=== PATIENT | male | born 1945 | race Caucasian/White ===

== ENCOUNTER 2018-07-30 20:42 | Emergency (ER) | payer MEDICARE, OTHER ==
--- NOTE | 2018-07-30 21:21 | EDM.PDOC ---
ED HPI GENERAL MEDICAL PROBLEM - General Stated Complaint: PNEUMONIA? [id number] Time Seen by Provider: 07/30/18 21:05 Source of Information: Reports: Patient, Family History Limitations: Reports: No Limitations - History of Present Illness INITIAL COMMENTS - FREE TEXT/NARRATIVE: This 72 yo male patient was brought to the ED by his due to increased difficulties moving. The patient has a history of CLL and has been getting more unstable over the past couple of months, but today the patient has not been able to walk. The patient has been reporting a cough over the past couple of days. The patient reports he has no current pain or problems. The patient's states the patient has lost control of his bowels and bladder. The [facility] and [facility] through the [facility] and [facility]. Onset: Today Duration: Constant, Getting Worse Location: Reports: Generalized Quality: Reports: Other Severity: Moderate Improves with: Reports: None Worsens with: Reports: None Context: Reports: Other Associated Symptoms: Reports: No Other Symptoms ED ROS GENERAL - Review of Systems Review Of Systems: ROS reveals no pertinent complaints other than HPI. ED EXAM, GENERAL - Physical Exam Exam: See Below Exam Limited By: No Limitations General Appearance: Alert, WD/WN, Moderate Distress Eye Exam: Bilateral Eye: EOMI, Normal Inspection, PERRL Ears: Normal External Exam, Normal Canal, Hearing Grossly Normal, Normal TMs Nose: Normal Inspection, Normal Mucosa, No Blood Throat/Mouth: Normal Inspection, Normal Lips, Normal Teeth, Normal Gums, Normal Oropharynx, Normal Voice, No Airway Compromise Head: Atraumatic, Normocephalic Neck: Normal Inspection, Supple, Non-Tender, Full Range of Motion Respiratory/Chest: No Respiratory Distress, No Accessory Muscle Use, Chest Non- Tender, Decreased Breath Sounds (with decreased effort) Cardiovascular: Normal Peripheral Pulses, Regular Rate, Rhythm, No Edema, No Gallop, No JVD, No Murmur, No Rub GI/Abdominal: Normal Bowel Sounds, Soft, Non-Tender, No Organomegaly, No Distention, No Abnormal Bruit, No Mass (Male) Exam: Deferred Rectal (Males) Exam: Deferred Back Exam: Normal Inspection, Full Range of Motion, NT Extremities: Normal Inspection, Normal Range of Motion, Non-Tender, No Pedal Edema, Normal Capillary Refill Neurological: Alert, Oriented, CN II-XII Intact, Normal Cognition, Abnormal Gait (increased lower extremity weakness) Psychiatric: Normal Affect, Normal Mood Skin Exam: Warm, Dry, Intact, Normal Color, No Rash Lymphatic: No Adenopathy Course - Vital Signs Last Recorded V/S: Last Vital Signs Temp 37.5 C 07/30/18 20:09 Pulse 109 H 07/30/18 20:09 Resp 25 H 07/30/18 20:09 BP 140/81 07/30/18 20:09 Pulse Ox 96 07/30/18 20:09 - Orders/Labs/Meds Orders: Active Orders 24 hr Category Date Time Status EKG Documentation Completion [RC] URGENT Care 07/30/18 21:09 Active COMPREHENSIVE METABOLIC PN,CMP [CHEM] Urgent Lab 07/30/18 22:00 Results CULTURE BLOOD [BC] Stat Lab 07/30/18 22:00 Received CULTURE URINE [RM] Urgent Lab 07/30/18 21:55 Received TROPONIN I [CHEM] Urgent Lab 07/30/18 22:00 Results UA W/MICROSCOPIC [URIN] Urgent Lab 07/30/18 21:55 Results Labs: Laboratory Tests 07/30/18 07/30/18 07/30/18 Range/Units 21:55 22:00 22:00 WBC 5.8 (5.0-10.0) 10^3/uL RBC 3.82 L (4.6-6.2) 10^6/uL Hgb 13.8 L (14.0-18.0) g/dL Hct 39.7 L (40.0-54.0) % MCV 103.9 H D (80-100) fL MCH 36.1 H (27.0-34.0) pg MCHC 34.8 (33.0-35.0) g/dL Plt Count 110 L (150-450) 10^3/uL Neut % (Auto) 63.9 (42.2-75.2) % Lymph % (Auto) 19.5 L (20.5-50.1) % Harper % (Auto) 15.6 H (2-8) % Eos % (Auto) 0.7 L (1.0-3.0) % Baso % (Auto) 0.3 (0.0-1.0) % Sodium 131 L (135-145) mmol/L Potassium 4.2 (3.6-5.0) mmol/L Chloride 97 L (101-111) mmol/L Carbon Dioxide 21.0 (21.0-31.0) mmol/L Anion Gap 17.2 BUN 20 H (7-18) mg/dL Creatinine 1.5 H (0.6-1.3) mg/dL Est Cr Clr Drug Dosing 45.96 mL/min Estimated GFR (MDRD) 46 BUN/Creatinine Ratio 13.33 Glucose 106 H (74-105) mg/dL Lactic Acid (0.5-2.2) mmol/L Calcium 9.0 (8.4-10.2) mg/dl Total Bilirubin 0.9 (0.2-1.0) mg/dL AST 35 (10-42) IU/L ALT 42 (10-60) IU/L Alkaline Phosphatase 118 (42-121) IU/L Total Protein 7.1 (6.7-8.2) g/dl Albumin 4.2 (3.2-5.5) g/dl Globulin 2.9 Albumin/Globulin Ratio 1.45 Urine Color Yellow (YELLOW) Urine Appearance Slightly cloudy (CLEAR) Urine pH 5.5 (5.0-9.0) Ur Specific Maskell 1.025 (1.005-1.030) Urine Protein 100 H (NEGATIVE) Urine Glucose (UA) 100 H (NEGATIVE) Urine Ketones 40 H (NEGATIVE) Urine Occult Blood Negative (NEGATIVE) Urine Nitrite Negative (NEGATIVE) Urine Bilirubin Small H (NEGATIVE) Urine Urobilinogen 0.2 (0.2-1.0) mg/dL Ur Leukocyte Esterase Small H (NEGATIVE) 07/30/18 Range/Units 22:00 WBC (5.0-10.0) 10^3/uL RBC (4.6-6.2) 10^6/uL Hgb (14.0-18.0) g/dL Hct (40.0-54.0) % MCV (80-100) fL MCH (27.0-34.0) pg MCHC (33.0-35.0) g/dL Plt Count (150-450) 10^3/uL Neut % (Auto) (42.2-75.2) % Lymph % (Auto) (20.5-50.1) % Harper % (Auto) (2-8) % Eos % (Auto) (1.0-3.0) % Baso % (Auto) (0.0-1.0) % Sodium (135-145) mmol/L Potassium (3.6-5.0) mmol/L Chloride (101-111) mmol/L Carbon Dioxide (21.0-31.0) mmol/L Anion Gap BUN (7-18) mg/dL Creatinine (0.6-1.3) mg/dL Est Cr Clr Drug Dosing mL/min Estimated GFR (MDRD) BUN/Creatinine Ratio Glucose (74-105) mg/dL Lactic Acid 1.4 (0.5-2.2) mmol/L Calcium (8.4-10.2) mg/dl Total Bilirubin (0.2-1.0) mg/dL AST (10-42) IU/L ALT (10-60) IU/L Alkaline Phosphatase (42-121) IU/L Total Protein (6.7-8.2) g/dl Albumin (3.2-5.5) g/dl Globulin Albumin/Globulin Ratio Urine Color (YELLOW) Urine Appearance (CLEAR) Urine pH (5.0-9.0) Ur Specific Maskell (1.005-1.030) Urine Protein (NEGATIVE) Urine Glucose (UA) (NEGATIVE) Urine Ketones (NEGATIVE) Urine Occult Blood (NEGATIVE) Urine Nitrite (NEGATIVE) Urine Bilirubin (NEGATIVE) Urine Urobilinogen (0.2-1.0) mg/dL Ur Leukocyte Esterase (NEGATIVE) - Re-Assessments/Exams Free Text/Narrative Re-Assessment/Exam: 07/30/18 22:54 A call was placed to the [facility] in [place] (Dr. Ceballos advised that their facility was full and unable to accept the patient at this time). A call was then placed to [facility] in [place]. Dr. Handy accepted the patient for continued evaluation and management. Departure - Departure Time of Disposition: 22:57 Disposition: DC/Tfer to Acute Hospital 02 Condition: Fair Clinical Impression: Lower extremity weakness Qualifiers: Laterality: bilateral Qualified Code(s): R29.898 - Other symptoms and signs involving the musculoskeletal system Incontinence of bowel Qualifiers: Fecal incontinence type: unspecified Qualified Code(s): R15.9 - Full incontinence of feces Incontinence of urine Qualifiers: Urinary Incontinence type: unspecified incontinence Qualified Code(s): R32 - Unspecified urinary incontinence - Discharge Information *PRESCRIPTION DRUG MONITORING PROGRAM REVIEWED*: Not Applicable *COPY OF PRESCRIPTION DRUG MONITORING REPORT IN PATIENT SYED: Not Applicable Forms: Interfacility Transfer EMTALA Care Plan Goals: Discussed the patient's history, examination, labs, EKG, CT and x-ray results with Dr. Handy ([facility] in [place]). Dr. Handy accepted the patient for continued evaluation and further management. The patient will be transported by [facility]. - My Orders Last 24 Hours: My Active Orders 07/30/18 21:09 EKG Documentation Completion [RC] URGENT 07/30/18 21:55 CULTURE URINE [RM] Urgent UA W/MICROSCOPIC [URIN] Urgent 07/30/18 22:00 COMPREHENSIVE METABOLIC PN,CMP [CHEM] Urgent CULTURE BLOOD [BC] Stat TROPONIN I [CHEM] Urgent - Assessment/Plan Last 24 Hours: My Active Orders 07/30/18 21:09 EKG Documentation Completion [RC] URGENT 07/30/18 21:55 CULTURE URINE [RM] Urgent UA W/MICROSCOPIC [URIN] Urgent 07/30/18 22:00 COMPREHENSIVE METABOLIC PN,CMP [CHEM] Urgent CULTURE BLOOD [BC] Stat TROPONIN I [CHEM] Urgent
[2018-07-30 22:32] LABS: ANION GAP 17.2; CHLORIDE,CL 97 mmol/L (101-111); SODIUM,NA 131 mmol/L (135-145)
== END 2018-07-30 23:15 ==
LOC: DL.ED 20:42
DX: R29.898 Other symptoms and signs involving the musculoskeletal system (principal); R15.9 Full incontinence of feces; R32 Unspecified urinary incontinence; R94.31 Abnormal electrocardiogram [ECG] [EKG]
CPT/HCPCS: 36415; 70450; 71045; 80053; 81001; 83605; 84484; 85025; 87040; 87086; 93005; 99284; 99285-25

== ENCOUNTER 2025-01-30 09:30 | Day surgery (SDC) | payer OTHER ==
[2025-01-30] MEDS ORDERED: Sodium Chloride 0.9% 10 ML Syringe IV ONE (09:31)
[2025-01-30] MEDS ORDERED: Dexamethasone 4 MG/ML SDV IV ONE (09:31)
[2025-01-30] MEDS ORDERED: Midazolam 1 MG/ML 2 ML SDV IV ONE (09:31)
[2025-01-30] MEDS ORDERED: Ondansetron 4 MG/2 ML SDV IVPUSH PRN (10:15)
[2025-01-30] MEDS: Povidone-Iodine 5% Sterile Ophth Soln 30 ML Bottle EYERT ONE ×2 (10:24→10:56)
[2025-01-30] MEDS: Moxifloxacin 0.5% Ophth Soln 3 ML Bottle EYERT ONE (10:28)
[2025-01-30] MEDS: Phenylephrine 10% Ophth Soln 5 ML Bot EYERT ONE (10:31)
[2025-01-30] MEDS: Timolol Maleate 0.5% Ophth Soln 5 ML Bottle EYERT ONE (10:32)
[2025-01-30] MEDS: Cataract Ophth Solution EYERT ONE (10:34)
[2025-01-30] MEDS: Apraclonidine 0.5% Ophth Soln 5 ML Bot EYERT ONE (10:58)
[2025-01-30] MEDS: Diclofenac Sodium 0.1% Ophth Soln 5 ML Bottle EYERT ONE (10:59)
[2025-01-30] MEDS: Dexamethasone/Neomycin/Polymyxin B Ophth Oint 3.5 GM Tube EYERT ONE (10:59)
[2025-01-30] MEDS: Acetylcholine 20 MG/2 ML Intraocular Inj Kit EYERT ONE (11:04)
[2025-01-30] MEDS: Chondroitin Sulfate/Hyaluronate Sodium Ophth Inj 0.75 ML Syringe EYERT ONE (11:04)
[2025-01-30] MEDS ORDERED: Dexamethasone 4 MG/ML SDV ONE (11:28)
== END 2025-01-30 11:47 | disposition home or self-care (01) ==
LOC: DL.SDS 09:30
PROVIDERS: ATTEND Ophthalmology
DX: H25.811 Combined forms of age-related cataract, right eye (principal); H40.1110 Primary open-angle glaucoma, right eye, stage unspecified; H40.9 Unspecified glaucoma; E78.5 Hyperlipidemia, unspecified; G47.33 Obstructive sleep apnea (adult) (pediatric); F17.210 Nicotine dependence, cigarettes, uncomplicated; Z79.899 Other long term (current) drug therapy
CPT/HCPCS: 66991; A9270; J2003; J3373; 00142; 99100; C1783; J1100; J2250; J3490; V2632

== ENCOUNTER 2025-02-13 10:03 | Day surgery (SDC) | payer OTHER ==
[~2025-02-13 10:03] MED LIST: Ondansetron 4 MG/2 ML SDV IVPUSH PRN
[2025-02-13] MEDS: Moxifloxacin 0.5% Ophth Soln 3 ML Bottle EYELF ONE (10:33)
[2025-02-13] MEDS: Povidone-Iodine 5% Sterile Ophth Soln 30 ML Bottle EYELF ONE ×2 (10:34→10:57)
[2025-02-13] MEDS: Phenylephrine 10% Ophth Soln 5 ML Bot EYELF ONE (10:35)
[2025-02-13] MEDS: Timolol Maleate 0.5% Ophth Soln 5 ML Bottle EYELF ONE (10:35)
[2025-02-13] MEDS: Cataract Ophth Solution EYELF ONE (10:36)
[2025-02-13] MEDS: Acetylcholine 20 MG/2 ML Intraocular Inj Kit EYELF ONE (11:09)
[2025-02-13] MEDS: Apraclonidine 0.5% Ophth Soln 5 ML Bot EYELF ONE (11:09)
[2025-02-13] MEDS: Chondroitin Sulfate/Hyaluronate Sodium Ophth Inj 0.5 ML Syringe IOCULAR ONE (11:09)
[2025-02-13] MEDS: Dexamethasone/Neomycin/Polymyxin B Ophth Oint 3.5 GM Tube EYELF ONE (11:10)
[2025-02-13] MEDS: Diclofenac Sodium 0.1% Ophth Soln 5 ML Bottle EYELF ONE (11:10)
== END 2025-02-13 12:15 | disposition home or self-care (01) ==
LOC: DL.SDS 10:03
PROVIDERS: ATTEND Ophthalmology
DX: H25.812 Combined forms of age-related cataract, left eye (principal); H40.1121 Primary open-angle glaucoma, left eye, mild stage; I25.10 Atherosclerotic heart disease of native coronary artery without angina pectoris
CPT/HCPCS: 66991; A9270; J2003; J3373; J3490